=== PATIENT | female | born 2000 | race Caucasian/White ===

== ENCOUNTER → 2021-06-24 12:35 | Outpatient (CLI) | payer OTHER, SELFPAY | PROVIDERS: Referring Provider Physician Assistant; Visit Provider Physician Assistant | DX: R52 Pain, unspecified (principal); N89.8 Other specified noninflammatory disorders of vagina | CPT/HCPCS: 87086; 87210 ==

== ENCOUNTER → 2023-12-01 16:12 | Outpatient (CLI) | payer OTHER, SELFPAY ==
[2023-12-03 00:09] LABS: HSV 2 IGG AB 7.29 index (0.00-0.90); HSV1IGG < 0.91 index (0.00-0.90)
== END ==
PROVIDERS: Referring Provider Chiropractor; Visit Provider Chiropractor
DX: B00.9 Herpesviral infection, unspecified (principal)
CPT/HCPCS: 36415; 86695; 86696